=== PATIENT | female | born 1990 | race African-American/Black ===

== ENCOUNTER 2016-10-28 13:53 | Emergency (ER) | payer SELFPAY ==
[~2016-10-28] VITALS: Ht 162.6 cm; Wt 61.7 kg
[2016-10-28 14:20] VITALS: BP 133/93
== END 2016-10-28 15:22 | disposition home or self-care (01) ==
LOC: ER 13:53
DX: N61.0 Mastitis without abscess (principal); F12.10 Cannabis abuse, uncomplicated